=== PATIENT | male | born 1955 | race Caucasian/White ===

== ENCOUNTER 2025-04-02 02:10 | Emergency (ER) | payer OTHER ==
[2025-04-02] MEDS ORDERED: Ketorolac Tromethamine 30 MG (1 mL) VIAL ONE (02:54)
[2025-04-02 03:03] LABS: #Basophils Less than 0.03 10x3/uL (0.0-0.2); #Eosinophils 0.05 10x3/uL (0.0-0.7); #Monocytes 0.52 10x3/uL (0.11-0.59); #Neutrophils 6.57 10x3/uL (1.40-6.50); %Basophils 0.1 % (0.0-1.0); %Eosinophils 0.7 % (0.0-10.0); %Lymphocytes 5.2 % (21.0-51.0); %Monocytes 6.9 % (0.0-10.0); %Neutrophils 86.7 % (42.0-75.0); Hematocrit 28.9 % (42.0-52.0); Hemoglobin 8.5 g/dL (14.0-18.0); Mean Corpuscular Hemoglobin 23.2 pg (27.0-31.0); Mean Corpuscular Volume 79.0 fL (78.0-98.0); Platelet Count 212 10x3/uL (130-400); Red Blood Cell (RBC) Count 3.66 mill/uL (4.70-6.10); White Blood Cell (WBC) Count 7.57 10x3/uL (4.8-10.8)
[2025-04-02 03:18] LABS: ALT (SGPT) 21 U/L (Less than 45); AST (SGOT) 30 U/L (11-34); Albumin 3.7 g/dL (3.1-4.5); Alkaline Phosphatase 79 U/L (40-110); Anion Gap 14 mmol/L (10-20); BUN (Urea Nitrogen) 16 mg/dL (8.4-25.7); Bilirubin, Total 0.6 mg/dL (0.3-1.2); Calc. Creatinine Clearance 0 mL/min (70-130); Calcium 8.5 mg/dL (7.8-10.44); Carbon Dioxide 21 mmol/L (23-31); Chloride 110 mmol/L (98-107); Globulin 2.8 g/dL (2.4-3.5); Glucose 115 mg/dL (80-115); INR-International Normal Ratio 1.0; PTT 27.1 sec (22.9-36.1); Potassium 3.6 mmol/L (3.5-5.1); Prothrombin Time 13.6 sec (12.0-14.7); Sodium 141 mmol/L (136-145)
[2025-04-02] MEDS ORDERED: Ondansetron PF 4 MG/2 ML Vial ONE (04:34)
[2025-04-02] MEDS ORDERED: Dicyclomine 20 MG TAB ONE (04:34)
[2025-04-02] MEDS ORDERED: Droperidol 5 MG/2 ML VIAL ONE (05:11)
[2025-04-02] MEDS ORDERED: Iopamidol 370 76% 100 ML VIAL ONE (09:56)
== END 2025-04-02 07:55 | disposition home or self-care (01) ==
LOC: ERS 02:10 → EEVIPCON 02:10 → ERS 07:55
DX: A08.4 Viral intestinal infection, unspecified (principal)
CPT/HCPCS: 71045; 74177; 80053; 83605; 84484; 85025; 85610; 85730; 87040; 93005; 96361; 96374; 96375; J1790; J1885; Q9967